=== PATIENT | female | born 1965 | race Caucasian/White ===

== ENCOUNTER 2016-11-15 16:13 | Emergency (ER) | payer MEDICAID ==
[~2016-11-15] VITALS: Ht 165.1 cm; Wt 135.4 kg
[~2016-11-15 16:13] MED LIST: AMIT50TA PO; AMLO10TA2 PO; ARIP5TAB6 PO; ASPI-496 PO; ASPI-515 PO; CEFD300C2 PO; CYCL-259 PO; ESCI10TA10 PO; FENO145T32 PO; FLUO20CA19 PO; FURO40TA6 PO; GABA600T2 PO; HYDR-3138 PO; HYDR-3240 PO; HYDR-3241 PO; HYDR-3307 PO; HYDR25TA11 PO; LEVO750T26 PO; LORA-446 PO; LORA10TA75 PO; LOSA100T2 PO; METF500T4 PO; METO25TA35 PO; MULT-6 PO; NAPR220T77; ONDA4TAB10 PO; ONDA4TAB7 PO; OPIU1SUP PR; OXYB5TAB7 PO; OXYC-302 PO; PHEN-418 PO; POLY17PO5 PO; PRAZ1CAP2 PO; PRAZ2CAP2 PO; SENN1TAB7 PO; SERT25TA PO; SIMV5TAB5 PO; TAMS-11 PO; TAMS0.4C2 PO; TRAM50TA2 PO; TRAZ150T68 PO
[2016-11-15] MEDS ORDERED: SODIUM CHLORIDE 0.9% 1,000ML IV ONE (16:30)
[2016-11-15] MEDS ORDERED: SODIUM CHLORIDE FLUSH 10ML SYR IVF ONE (16:30)
[2016-11-15 17:06] LABS: HEMOGLOBIN 16.3 g/dL (11.7-16.4)
[2016-11-15 17:19] LABS: ASPARTATE AMINO TRANSFERASE 24 U/L (15-37); BLOOD UREA NITROGEN 15 mg/dL (7-18)
[2016-11-15 21:26] LABS: PATH.CAST-FLAG NOT PRESENT; SPERM-FLAG NOT PRESENT; SRC-FLAG NOT PRESENT; XTAL-FLAG NOT PRESENT; YLC-FLAG NOT PRESENT
[2016-11-15 22:26] VITALS: BP 132/93
== END 2016-11-15 22:29 | disposition home or self-care (01) ==
LOC: ED 19:02
DX: N20.0 Calculus of kidney (principal); Z87.442 Personal history of urinary calculi; F41.1 Generalized anxiety disorder; E78.5 Hyperlipidemia, unspecified; E11.9 Type 2 diabetes mellitus without complications; I10 Essential (primary) hypertension; E66.9 Obesity, unspecified; Z87.440 Personal history of urinary (tract) infections; Z87.891 Personal history of nicotine dependence; Z98.890 Other specified postprocedural states; Z96.0 Presence of urogenital implants
CPT/HCPCS: 36415; 74176; 80053; 81001; 85025; 87086; 99285; J7030

== ENCOUNTER 2017-10-14 13:33 | Emergency (ER) | payer MEDICAID ==
[~2017-10-14] VITALS: Ht 165.1 cm; Wt 109.5 kg
[~2017-10-14 13:33] MED LIST changes: +AMLO5TAB2 PO; +ARIP5TAB13 PO; -ARIP5TAB6 PO; +BUSP5TAB2 PO; +CARI350T PO; -CEFD300C2 PO; +CEFD300C37 PO; +FLUT1DIS IH; +FURO-92 PO; +GABA800T2 PO; -HYDR-3138 PO; +HYDR-3237 PO; +INSU300I INJ; +LOSA100T6 PO; +LURA20TA PO; +POTA10TA11 PO; +PROP20TA PO; +QUET100T PO; +TRAZ150T62 PO; -TRAZ150T68 PO
[2017-10-14 14:26] LABS: BASOPHILS # (AUTO) 0.02 x10^3/uL (0-0.1); BASOPHILS % (AUTO) 0 % (0-1); EOSINOPHILS # (AUTO) 0.02 x10^3/uL (0-0.4); EOSINOPHILS % (AUTO) 0 % (1-7); LYMPHOCYTES # (AUTO) 0.55 x10^3/uL (1-3.4); LYMPHOCYTES % (AUTO) 9 % (22-44); MD NO; MEAN CORPUSCULAR HEMOGLOBIN 31.3 pg (27.0-34.8); MEAN CORPUSCULAR HGB CONC 33.4 g/dL (32.4-35.8); MEAN CORPUSCULAR VOLUME 93.7 fL (80-100); MEAN PLATELET VOLUME 8.7 fL (7.4-10.4); MONOCYTES % (AUTO) 14 % (2-9); NEUTROPHILS # (AUTO) 4.95 x10^3/uL (1.8-6.8); NEUTROPHILS % (AUTO) 77 % (42-75); PLATELET COUNT 223 x10^3/uL (130-400); RED BLOOD COUNT 6.14 x10^6/uL (3.82-5.3); RED CELL DISTRIBUTION WIDTH 14.1 % (9.6-15.2)
[2017-10-14] MEDS ORDERED: SODIUM CHLORIDE FLUSH 10ML SYR IVF ONE (14:30)
[2017-10-14] MEDS ORDERED: ONDANSETRON 2MG/ML, 2ML IVPush ONE (14:30)
[2017-10-14 14:39] LABS: ALANINE AMINOTRANSFERASE 18 U/L (12-78); ALBUMIN 3.6 g/dL (3.4-5.0); ANION GAP 10 mmol/L (5-15); CALCIUM 9.4 mg/dL (8.5-10.1); CHLORIDE 104 mmol/L (98-107)
[2017-10-14 14:42] LABS: ALKALINE PHOSPHATASE 87 U/L (45-117); BILIRUBIN,TOTAL 0.4 mg/dL (0.2-1.0); TOTAL PROTEIN 7.7 g/dL (6.4-8.2)
[2017-10-14] MEDS ORDERED: SODIUM CHLORIDE 0.9% 1,000ML IV ONE (15:30)
[2017-10-14] MEDS ORDERED: ACETAMINOPHEN 325 MG TABLET PO ONE (15:30)
[2017-10-14] MEDS ORDERED: KETOROLAC 30 MG/1 ML IVPush ONE (15:30)
[2017-10-14] MEDS ORDERED: HYDROmorphone 2 MG/ML, 1ML ONE ×2 (15:46→17:01)
[2017-10-14] MEDS ORDERED: ACETAMINOPHEN 325 MG TABLET ONE (15:46)
[2017-10-14] MEDS ORDERED: KETOROLAC 30 MG/1 ML ONE (15:47)
[2017-10-14] MEDS ORDERED: ONDANSETRON 2MG/ML, 2ML ONE (15:47)
[2017-10-14] MEDS: HYDROmorphone 2 MG/ML, 1ML IVPush PRN ×2 (15:53→17:04)
[2017-10-14] MEDS ORDERED: HYDROcodone/APAP 10/325 MG TABLET ONE (17:00)
[2017-10-14] MEDS ORDERED: TAMSULOSIN 0.4 MG CAP.ER.24H PO ONE (17:00)
[2017-10-14 17:21] LABS: MICROSCOPIC AUTO
[2017-10-14 17:22] LABS: CULTURE INDICATED? NO
[2017-10-14] MEDS ORDERED: TAMSULOSIN 0.4 MG CAP.ER.24H ONE (17:43)
[2017-10-14 18:14] VITALS: BP 150/100
== END 2017-10-14 18:47 | disposition home or self-care (01) ==
LOC: ED 18:41
DX: N20.2 Calculus of kidney with calculus of ureter (principal); I10 Essential (primary) hypertension; E11.9 Type 2 diabetes mellitus without complications; E78.5 Hyperlipidemia, unspecified; E66.9 Obesity, unspecified; G43.909 Migraine, unspecified, not intractable, without status migrainosus
CPT/HCPCS: 36415; 74018; 74176; 76770; 80053; 81001; 85025; 96361; 96374; 96375; 99285; J1170; J1885; J2405; J7030

== ENCOUNTER 2018-02-13 12:19 | Emergency (ER) | payer MEDICAID ==
[~2018-02-13] VITALS: Ht 165.1 cm; Wt 99.5 kg
[2018-02-13] MEDS ORDERED: ONDANSETRON ODT 4 MG PO ONE (13:00)
[2018-02-13] MEDS ORDERED: TAMSULOSIN 0.4 MG CAP.ER.24H PO ONE (13:00)
[2018-02-13] MEDS ORDERED: SODIUM CHLORIDE FLUSH 10ML SYR IVF ONE (13:00)
[2018-02-13] MEDS ORDERED: KETOROLAC 30 MG/1 ML IVPush ONE (13:00)
[2018-02-13] MEDS ORDERED: ONDANSETRON ODT 4 MG ONE (13:02)
[2018-02-13] MEDS ORDERED: KETOROLAC 30 MG/1 ML ONE (13:02)
[2018-02-13] MEDS ORDERED: TAMSULOSIN 0.4 MG CAP.ER.24H ONE (13:02)
[2018-02-13 13:07] LABS: BASOPHILS # (AUTO) 0.03 x10^3/uL (0-0.1); BASOPHILS % (AUTO) 0 % (0-1); EOSINOPHILS % (AUTO) 1 % (1-7); LYMPHOCYTES # (AUTO) 2.26 x10^3/uL (1-3.4); LYMPHOCYTES % (AUTO) 26 % (22-44); MD NO; MEAN CORPUSCULAR HEMOGLOBIN 32.1 pg (27.0-34.8); MEAN CORPUSCULAR HGB CONC 33.5 g/dL (32.4-35.8); MEAN CORPUSCULAR VOLUME 95.7 fL (80-100); MEAN PLATELET VOLUME 7.8 fL (7.4-10.4); MONOCYTES # (AUTO) 0.64 x10^3/uL (0.2-0.8); MONOCYTES % (AUTO) 8 % (2-9); NEUTROPHILS # (AUTO) 5.61 x10^3/uL (1.8-6.8); NEUTROPHILS % (AUTO) 65 % (42-75); PLATELET COUNT 262 x10^3/uL (130-400); RED BLOOD COUNT 5.69 x10^6/uL (3.82-5.3); RED CELL DISTRIBUTION WIDTH 13.9 % (9.6-15.2)
[2018-02-13 13:18] LABS: ALBUMIN 3.9 g/dL (3.4-5.0); ANION GAP 8 mmol/L (5-15); CALCIUM 9.1 mg/dL (8.5-10.1); CHLORIDE 111 mmol/L (98-107)
[2018-02-13 13:21] LABS: ALANINE AMINOTRANSFERASE 26 U/L (12-78); ALKALINE PHOSPHATASE 86 U/L (45-117); BILIRUBIN,TOTAL 0.9 mg/dL (0.2-1.0); CREATININE 0.81 mg/dL (0.55-1.02); TOTAL PROTEIN 7.8 g/dL (6.4-8.2)
[2018-02-13 14:15] LABS: MICROSCOPIC INDICATED
[2018-02-13 14:18] LABS: CULTURE INDICATED? NO
[2018-02-13] MEDS ORDERED: MORPHINE SULFATE 4 MG/ML, 1ML ONE ×2 (14:40→16:21)
[2018-02-13] MEDS: MORPHINE SULFATE 4 MG/ML, 1ML IVPush PRN ×2 (14:42→16:22)
[2018-02-13 17:32] VITALS: BP 138/97
== END 2018-02-13 18:01 | disposition home or self-care (01) ==
LOC: ED 15:24
DX: N13.2 Hydronephrosis with renal and ureteral calculous obstruction (principal); I10 Essential (primary) hypertension; E11.9 Type 2 diabetes mellitus without complications; E78.5 Hyperlipidemia, unspecified; F17.200 Nicotine dependence, unspecified, uncomplicated; Z88.0 Allergy status to penicillin; Z79.891 Long term (current) use of opiate analgesic
CPT/HCPCS: 36415; 74176; 76770; 80053; 81001; 85025; 96374; 96375; 96376; 99285; J1885; Q0162

== ENCOUNTER 2021-05-24 10:14 | Emergency (ER) | payer MEDICAID ==
[~2021-05-24] VITALS: Ht 165.1 cm; Wt 125.6 kg
[~2021-05-24 10:14] MED LIST changes: +AMLO-150 PO; +AMLO-211 PO; -AMLO10TA2 PO; -AMLO5TAB2 PO; -ASPI-515 PO; +ASPI-963 PO; -CYCL-259 PO; +CYCL10TA2 PO; -GABA600T2 PO; +GABA600T7 PO; -GABA800T2 PO; +GABA800T5 PO; +HYDR-2214 PO; -HYDR-3240 PO; +HYDR-3248 PO; -HYDR-3307 PO; +HYDR-826 PO; -HYDR25TA11 PO; +LOSA100T14 PO; -LOSA100T6 PO; +METF500T17 PO; -METF500T4 PO; +OXYB5TAB10 PO; -OXYB5TAB7 PO; -OXYC-302 PO; +OXYC1TAB12 PO; -QUET100T PO; +QUET100T2 PO; +SENN-177 PO; -SENN1TAB7 PO; +SIMV5TAB14 PO; -SIMV5TAB5 PO
--- NOTE | 2021-05-24 10:41 | NUR ---
SKY GRAY TO BEDSIDE. PT WITH C/O OF R. KNEE PAIN. PT STEADY GAIT TO BED.
[2021-05-24] MEDS ORDERED: ACETAMINOPHEN 500 MG TABLET ONE (10:52)
[2021-05-24] MEDS ORDERED: KETOROLAC 30 MG/1 ML ONE (10:52)
[2021-05-24] MEDS ORDERED: COVID-19 VACC,MRNA(MODERNA)/PF 100 MCG/0.5ML IM-VACC ONE (11:00)
[2021-05-24] MEDS ORDERED: ACETAMINOPHEN 500 MG TABLET PO ONE (11:00)
[2021-05-24] MEDS ORDERED: KETOROLAC 30 MG/1 ML IM ONE (11:00)
--- NOTE | 2021-05-24 13:00 | NUR ---
PT REC'VD DISCHARGE INSTRUCTIONS AND EDUCATION. PT HAD NO FURTHER QUESTIONS. PT AMBULATED WITH CRUTCHES AND KNEE DERIK WRAPPED TO DC AREA.
[2021-05-24 13:01] VITALS: BP 185/101
== END 2021-05-24 13:25 | disposition home or self-care (01) ==
LOC: ED 13:00
DX: S83.91XA Sprain of unspecified site of right knee, initial encounter (principal); M17.11 Unilateral primary osteoarthritis, right knee; Z23 Encounter for immunization; E78.5 Hyperlipidemia, unspecified; I11.9 Hypertensive heart disease without heart failure; Z90.710 Acquired absence of both cervix and uterus; Z90.89 Acquired absence of other organs; Z88.0 Allergy status to penicillin; Z88.5 Allergy status to narcotic agent; X58.XXXA Exposure to other specified factors, initial encounter; Y93.89 Activity, other specified; Y92.89 Other specified places as the place of occurrence of the external cause; Y99.8 Other external cause status
CPT/HCPCS: 0011A; 73564; 91301; 96372; 99283; J1885